=== PATIENT | male | born 1990 | race Caucasian/White ===

== ENCOUNTER 2018-05-20 22:00 | Emergency (ER) | payer SELFPAY ==
[~2018-05-20] VITALS: Ht 167.6 cm; Wt 63.0 kg
[2018-05-20 22:05] VITALS: BP 115/83
--- NOTE | 2018-05-20 22:07 | NUR ---
TO LOBBY A/W BED, AMB, VSS ERMD NOTED, NASAL SWAB DONE
--- NOTE | 2018-05-20 22:32 | NUR ---
PT TAKEN TO BED 12
--- NOTE | 2018-05-20 22:32 | NUR ---
PT PRESENTS TO ED WITH GENERALIZED BODY ACHES, ARCINIEGA, SOAR THROAT. 6/10 PAIN. PT FEBRILE AT 102. COOLING MEASURES IMPLEMENTED. A&OX4. POSITIONED IN BED FOR COMFORT. ER MD AWARE. FAMILY AT BEDSIDE. CONTINUE TO MONITOR.
--- NOTE | 2018-05-20 23:45 | NUR ---
CRITICAL LAB RECIEVED FROM LAB AND IMMEDIATELY REPORTED TO DR MENARD. INFLUENZA-B POSITIVE, INFLUENZA-A NEGATIVE.
[2018-05-20] MEDS ORDERED: KETOROLAC 30 MG/ML VIAL IM ONE (23:50)
--- NOTE | 2018-05-21 00:12 | NUR ---
Patient discharged with v/s stable. Written and verbal after care instructions given and explained. Patient alert, oriented and verbalized understanding of instructions. Ambulatory with steady gait. All questions addressed prior to discharge. ID band removed. Patient advised to follow up with PMD. Rx of NAPROSYN, TAMIFLU AND GUAIATUSSIN given. Patient educated on indication of medication including possible reaction and side effects. Opportunity to ask questions provided and answered.
[2018-05-21 00:13] VITALS: BP 108/59
== END 2018-05-21 00:12 | disposition home or self-care (01) ==
LOC: MED 22:00
DX: J11.1 Influenza due to unidentified influenza virus with other respiratory manifestations (principal); Z90.49 Acquired absence of other specified parts of digestive tract
CPT/HCPCS: 36415; 87804; 99283